=== PATIENT | male | born 1960 | race Caucasian/White ===

== ENCOUNTER 2018-08-22 17:58 | Emergency (ER) | payer BC, SELFPAY ==
[2018-08-22 18:04] VITALS: BP 130/86; PULSE 71; RESP 16; TEMP 36.4; O2SAT 99
[2018-08-22] MEDS: Gelatin SPONGE 12-7 MM PKT 1 EACH TP (18:52)
--- NOTE | 2018-08-22 18:52 | ED.GENADUL_ITS ---
Discharge Plan Disposition Patient Disposition: HOME Condition: Stable Discharge Details Chief Complaint: Laceration Clinical Impression: Avulsion of skin of index finger Primary Care Provider: Matt Lucas ED Provider: Johana Zaidi Home Meds and New Rx's Prescriptions: Continued ProAir HFA 8.5 GM HFA aerosol inhaler 8.5 gm Inhalation Q4H PRNQty: 1 RF: 0 cholecalciferol (vitamin D3) 1,000 UNITS tablet 3,000 units PO DAILY RF: 0 Discharge Instructions Instructions: Finger Laceration (ED) Additional Instructions: Keep wound clean, dry and intact. Let the Gelfoam fall off naturally, do not peel it off. It will fall off as the skin below the Gelfoam begins to heal. If you feel any signs of increased pain or swelling, remove the Gelfoam and apply topical antibiotic ointment. After the Gelfoam falls off, keep wound clean and dry. If you develop any signs of redness pain or swelling, apply Neosporin topical antibiotic ointment. Follow-up with your primary care doctor in 1 week for reevaluation. Call your primary care doctor's office on Friday to confirm your tetanus status and if you are not up to date, obtain a tetanus within 48 hours from time of injury at your doctor's office or emergency department. Return immediately to the emergency department any worsening or new concerning symptoms of fever or significant worsening redness pain or swelling. Discharge Data Discharge Physician: Johana Zaidi Medical Decision Making 58-year-old male who presents with left distal second fingertip skin avulsion after sliced with knife while cutting vegetables prior to arrival. Unsure of tetanus status. There is a 4 x 4 millimeter distal fingertip skin avulsion. Bleeding has since stopped. Edges appear clean. There is no bony injury. No evidence of infection. Patient offered tetanus here but he declined stating he would rather follow-up with his primary care doctor on Friday to determine his tetanus status. The fingertip was irrigated and Gelfoam applied with dressing. Patient was instructed to let the Gelfoam fall off naturally. He is instructed to keep the area clean dry and intact. If he notices any signs of redness, pain or swelling, to apply topical antibiotic ointment. He is instructed to follow with his primary care doctor for reevaluation and return here at any time with any significant worsening of symptoms. HPI General Mode of arrival: ambulatory . Date/Time Provider Initiated Documentation: 08/22/18 17:59 . Limitations to Documentation: no limitations . Information obtained by: patient . HPI Narrative: Patient is a 58-year-old male presents with left index finger laceration after sliced the tip of his finger off while cutting vegetables at home with a clean knife. He states he thinks his tetanus is up-to-date but he is unsure. He states he came here due to recommendations on care for his wound and because it cannot stop bleeding. States that it is since stopped bleeding. He denies any bony injury. Related Data Home Medications Medication Instructions Recorded Confirmed cholecalciferol (vitamin D3) 3,000 units PO DAILY 09/30/17 08/22/18 ProAir HFA 8.5 gm INHALATION Q4H PRN #1 10/07/17 08/22/18 [email or web address] Allergies Allergy/AdvReac Type Severity Reaction Status Date / Time No Known Allergies Allergy Unverified 08/22/18 18:07 General Stated Complaint: Laceration ELIZABETH: 4 Review of Systems Review of Systems All systems reviewed & are unremarkable except as noted in HPI and below Constitutional Reports as per HPI, Denies chills and Denies fever(s) Eyes Denies blurry vision ENT Denies dizziness, Denies sore throat and Denies throat swelling Cardiovascular Denies chest pain and Denies dyspnea Respiratory Denies cough and Denies dyspnea Gastrointestinal Denies abdominal pain, Denies diarrhea and Denies vomiting Genitourinary Denies hematuria and Denies dysuria Musculoskeletal Denies back pain and Denies numbness Integumentary/Breasts Denies lesions and Denies rash Neurologic Denies dizziness, Denies focal weakness and Denies numbness Allergic/Immunologic Denies throat swelling FORMERLY [facility], 1928–1983 Medical History No significant past medical history (Acute) Surgical History Perianal cyst (Acute) Family History Mother Stroke Father No problems noted. Sister No problems noted. Brother No problems noted. Brother No problems noted. Brother No problems noted. Social History Smoking and Tabacco status: Current every day alcohol intake: never substance use type: does not use Exam Const General: cooperative, healthy appearing and no acute distress HENMT Head: normal to inspection Mouth: oral mucosae normal Eyes General: appearance normal, both eyes and all related structures Neck Neck: normal visual inspection Resp Effort & Inspection: normal respiratory effort and able to speak in complete sentences Cardio Rate: regular rate Skin General skin exam: no rashes or lesions noted Neuro General: alert, awake and oriented x3 Motor: muscle tone normal throughout Extrem Hand/finger images: 1. 4x4mm superficial skin avulsion on lateral tip of L 2nd finger. No active bleeding. No surrounding edema, erythema or ecchymosis. No bony injury. No deformity noted. Psych Appearance: grossly normal Affect: normal affect Course Vital Signs Temperature 97.5 F L 08/22/18 18:04 Pulse 71 08/22/18 18:04 Respiratory Rate 16 08/22/18 18:04 Blood Pressure 130/86 08/22/18 18:04 Pulse Oximetry 99 08/22/18 18:04 Temperature 97.5 F L 08/22/18 18:04 Temperature Source Skin 08/22/18 18:04 Pulse 71 08/22/18 18:04 Respiratory Rate 16 08/22/18 18:04 Respiratory Effort 08/22/18 18:04 Blood Pressure 130/86 08/22/18 18:04 Blood Pressure Position Sitting 08/22/18 18:04 Pulse Oximetry 99 08/22/18 18:04 Oxygen Delivery Method Room Air 08/22/18 18:04 Oxygen Flow Rate 0 08/22/18 18:04 Pain Level 3 08/22/18 18:04
== END 2018-08-22 19:19 | disposition home or self-care (01) ==
PROVIDERS: Emergency Provider Physician Assistant; PCP Family Medicine
DX: S61.211A Laceration without foreign body of left index finger without damage to nail, initial encounter (principal); W26.0XXA Contact with knife, initial encounter
CPT/HCPCS: 99282

== ENCOUNTER 2018-09-18 00:58 | Outpatient (CLI) | payer BC, SELFPAY ==
--- NOTE | 2018-09-18 14:55 | DI.CTLCSR_ITS ---
SYMPTOMS/DIAGNOSIS: TOBACCO ABUSE, Z72.0, LUNG CANCER SCREENING CT SCAN OF THE CHEST: Noncontrast CT scan of the was performed according to the lung cancer screening protocol. The thoracic aorta shows atherosclerosis. No aneurysmal dilatation. The heart size is within normal limits. No significant pericardial effusion is seen. Coronary artery calcifications are present. No significant thoracic adenopathy, pleural effusion or pneumothorax is identified. There is a calcified granuloma seen in the left lower lobe laterally. No noncalcified pulmonary nodules are seen. No infiltrates are present. The tracheobronchial tree is unremarkable. Degenerative changes are seen in the spine. IMPRESSION: No pulmonary nodules. Lung-RAD Category: 1- Negative Lung- RAD Management of Findings: Continue annual LDCT screening in 12 months
== END 2018-09-18 01:18 ==
PROVIDERS: PCP Family Medicine; Visit Provider Family Medicine
DX: Z12.2 Encounter for screening for malignant neoplasm of respiratory organs (principal); J84.10 Pulmonary fibrosis, unspecified; Z72.0 Tobacco use
CPT/HCPCS: G0297

== ENCOUNTER 2019-01-14 06:38 | Emergency (ER) | payer BC, SELFPAY ==
[2019-01-14 06:44] VITALS: BP 124/75; PULSE 80; RESP 15; TEMP 36.6; O2SAT 100
[2019-01-14] MEDS: Tetracaine 0.5% 4 ML BTL (06:55)
--- NOTE | 2019-01-14 07:12 | W.ED.GENAD ---
Discharge Plan Disposition Patient Disposition: HOME Condition: Stable Discharge Details Chief Complaint: EyeProblem Clinical Impression: Corneal abrasion Primary Care Provider: Kuldeep French ED Provider: Johana Zaidi Home Meds and New Rx's Prescriptions: Continued benzonatate 100 mg capsule 100 - 200 mg PO TID PRN (Reason: cough) Qty: 60 RF: 0 Symbicort 80-4.5 mcg/actuation HFA aerosol inhaler 2 puff IH BID RF: 0 omega-3 fatty acids 500 mg capsule 1,000 mg PO DAILY RF: 0 PreserVision AREDS [id number] capsule 2 cap PO BID RF: 0 levalbuterol tartrate [Xopenex HFA] 45 mcg/actuation HFA aerosol inhaler 2 inh IH Q6H Qty: 15 RF: 2 cholecalciferol (vitamin D3) 1,000 UNITS tablet 3,000 units PO DAILY RF: 0 Discharge Instructions Instructions: Corneal Abrasion (ED) Additional Instructions: Apply the erythromycin ointment to your right eye 4 times daily for the next 5 days. Alternate Tylenol and Motrin as needed and directed for pain. Follow-up with [facility] eye care within the next week for reevaluation. Return to the emergency department if you develop any worsening or new concerning symptoms. Discharge Data Discharge Date/Time-TO BE ENTERED AT DEPARTURE: 01/14/19 07:35 Discharge Physician: Johana Zaidi Medical Decision Making 58-year-old male presents with right eye pain and irritation after scratched by his dog's nail/paw this morning. Patient is noted to have a corneal abrasion between 6 and 7:00. No foreign bodies noted. PERRLA. EOMI. No signs of cellulitis. Tetanus 2002. Boostrix ordered. Erythromycin ointment applied and to given for home. Patient instructed to follow-up with [facility] eye care for reevaluation and to return here anytime if worse HPI General Mode of arrival: ambulatory. Date/Time Provider Initiated Documentation: 01/14/19 06:39. Limitations to Documentation: no limitations. Information obtained by: patient. HPI Narrative: Patient is a 58-year-old male presents the ED with complaint of right eye pain after scratched by his dog this morning. Patient states he woke up and went to reach for his dogs Jose Rafael and he scratched him on his eye with his nail. Patient is unsure of his tetanus status. He denies any blurry vision, discharge. He does not wear contacts. He denies any foreign body sensation or known foreign body in eye. Related Data Home Medications Medication Instructions Recorded Confirmed cholecalciferol (vitamin D3) 3,000 units PO DAILY 09/30/17 01/14/19 benzonatate 100 mg capsule 100 - 200 mg PO TID PRN #60 cap 08/28/18 01/14/19 levalbuterol tartrate 45 2 inh IH Q6H #15 gm 09/15/18 01/14/19 mcg/actuation aerosol inhaler omega-3 fatty acids 500 mg capsule 1,000 mg PO DAILY cap 09/15/18 01/14/19 vitamins A,C,Y-gbas-xkryvp 14,320 2 cap PO BID cap 09/15/18 01/14/19 unit-226 mg-200 unit capsule budesonide-formoterol HFA 80 2 puff IH BID gm 10/07/18 01/14/19 mcg-4.5 mcg/actuation aerosol inhaler Previous Rx's Medication Instructions Recorded benzonatate 100 mg capsule 100 - 200 mg PO TID PRN #60 cap 08/28/18 levalbuterol tartrate 45 2 inh IH Q6H #15 gm 09/15/18 mcg/actuation aerosol inhaler Allergies Allergy/AdvReac Type Severity Reaction Status Date / Time No Known Allergies Allergy Verified 10/07/18 10:53 General Stated Complaint: EyeProblem ELIZABETH: 4 Review of Systems Review of Systems All systems reviewed & are unremarkable except as noted in HPI and below Constitutional Reports as per HPI, Denies chills and Denies fever(s) Eyes Denies blurry vision and Reports eye pain ENT Denies dizziness, Denies sore throat and Denies throat swelling Cardiovascular Denies chest pain and Denies dyspnea Respiratory Denies cough and Denies dyspnea Gastrointestinal Denies abdominal pain, Denies diarrhea and Denies vomiting Genitourinary Denies hematuria and Denies dysuria Musculoskeletal Denies back pain and Denies numbness Integumentary/Breasts Denies lesions and Denies rash Neurologic Denies dizziness, Denies focal weakness and Denies numbness Allergic/Immunologic Denies throat swelling PFS Social History Smoking/Tobacco Use Status: Current every day Alcohol Intake: never Drug use: Never Substance use type: does not use Do you feel safe at home: Yes Do you feel safe in your relationship?: Yes Exam Const General: cooperative, healthy appearing and no acute distress HENMT Head: normal to inspection Mouth: oral mucosae normal Eyes General: appearance normal, both eyes and all related structures Periorbital: periorbital findings normal Eyelids: eyelids normal Conjunctivae: conjunctival abnormality right conjunctival injection diffuse (mild) Cornea: corneas abnormal on the right fluorescein used and abrasion at the following clock position (between 6 and 7) Pupils: PERRL EOM: EOM intact bilaterally Other: No foreign bodies noted with full inspection including eyelid eversion of R eye. Neck Neck: normal visual inspection Resp Effort & Inspection: normal respiratory effort and able to speak in complete sentences Cardio Rate: regular rate Skin General skin exam: no rashes or lesions noted Neuro General: alert, awake and oriented x3 Motor: muscle tone normal throughout Extrem General: normal to inspection and full ROM Psych Appearance: grossly normal Affect: normal affect Course Vital Signs Temperature 97.9 F 01/14/19 06:44 Pulse 80 01/14/19 06:44 Respiratory Rate 15 01/14/19 06:44 Blood Pressure 124/75 01/14/19 06:44 Pulse Oximetry 100 01/14/19 06:44 Temperature 97.9 F 01/14/19 06:44 Temperature Source Temporal Artery Scan 01/14/19 06:44 Pulse 80 01/14/19 06:44 Respiratory Rate 15 01/14/19 06:44 Respiratory Effort Non-Labored 01/14/19 06:47 Blood Pressure 124/75 01/14/19 06:44 Blood Pressure Position Sitting 01/14/19 06:44 Pulse Oximetry 100 01/14/19 06:44 Oxygen Delivery Method Room Air 01/14/19 06:44 Oxygen Flow Rate 0 01/14/19 06:44
[2019-01-14] MEDS: Erythromycin Ophth Oint 3.5 GM TUBE (07:41)
[2019-01-14] MEDS: Fluorescein STRIPS 100/BOX 1 MG (07:42)
== END 2019-01-14 07:35 | disposition home or self-care (01) ==
PROVIDERS: Emergency Provider Physician Assistant; PCP Family Medicine
DX: S05.01XA Injury of conjunctiva and corneal abrasion without foreign body, right eye, initial encounter (principal); W54.8XXA Other contact with dog, initial encounter
CPT/HCPCS: 90471; 99284; 99283

== ENCOUNTER 2019-04-30 10:17 | Outpatient (CLI) | payer BC, SELFPAY ==
--- NOTE | 2019-04-30 10:37 | DI.RAD_ITS ---
EXAM: XR THORACIC SPINE COMPLETE INDICATION: mid back pain for 2 yrs, M54.9-DORSALGIA. COMPARISON: CHEST 2 VIEWS PA,LAT from 09/30/2017 TECHNIQUE: 2D digital imaging was performed. FINDINGS: The vertebral bodies are well maintained in height. The disc spaces are well maintained. There are minimal endplate osteophytes. There is no significant scoliosis. The aorta is mildly tortuous. Th e visualized portions of the lungs appear clear. IMPRESSION: Minimal degenerative changes.
== END 2019-04-30 10:37 ==
PROVIDERS: PCP Family Medicine; Visit Provider Family Medicine
DX: M54.6 Pain in thoracic spine (principal); M47.814 Spondylosis without myelopathy or radiculopathy, thoracic region
CPT/HCPCS: 72072

== ENCOUNTER 2019-06-07 13:19 | Emergency (ER) | payer BC, SELFPAY ==
[2019-06-07 13:26] VITALS: BP 127/79; PULSE 66; RESP 14; TEMP 35.6; O2SAT 99
[2019-06-07 14:10] VITALS: BP 163/84; PULSE 62; RESP 14; TEMP 35.8; O2SAT 97
--- NOTE | 2019-06-07 15:08 | ED.GENADUL_ITS ---
Discharge Plan Disposition Patient Disposition: HOME Condition: Stable Discharge Details Chief Complaint: Orthopedic Clinical Impression: Back pain Primary Care Provider: Kuldeep French ED Provider: Sea Schwarz Home Meds and New Rx's Prescriptions: New methylprednisolone [Medrol (Jose Miguel)] 4 mg tablets,dose pack See Rx Instructions .ROUTE .COMPLEX Qty: 21 RF: 0 No Action omega-3 fatty acids 500 mg capsule 1,000 mg PO DAILY RF: 0 PreserVision AREDS [id number] capsule 2 cap PO BID RF: 0 Discharge Instructions Instructions: Back Pain (ED) Additional Instructions: 1. Drink plenty of fluids. 2. Continue all medications as prescribed. 3. Acetaminophen 1000mg every 4 hours (up to 5 time a day) and/or ibuprofen 600mg every 6 hours as needed for fever or pain. 4. Medrol Dosepak as prescribed starting tomorrow. Do not take ibuprofen while taking this medication. 5. Follow-up with your doctor for reevaluation and a possible outpatient lumbar sacral MRI referral. Return to the Emergency Department (ED) if your condition worsens, does not imp rove as expected, or for ANY other concerns. Specifically, return if you have new or uncontrolled pain, worsening fever, difficulty breathing, vomiting, or are unable to drink fluids. Medical Decision Making 51-year-old gentleman presents with persistent lower back/left lower SI joint pain and tenderness which is radiating towards his posterior leg and left ankle. Exam significant for left SI joint tenderness and gluteal tenderness. No clinical evidence of neurovascular compromise. Discussed likely inflammatory etiology. Treated in the ED with oral Medrol and discharged Medrol Dosepak. Discussed need for outpatient follow-up and possible outpatient MRI for re- stratification for likely procedural intervention. Given usual and customary return instructions prior to discharge. Medical Records Medical records reviewed: Yes I reviewed the patient's medical records. HPI 59-year-old gent with a past medical history which includes back pain. Reports having had episodes of back pain localized to his lumbar and right gluteal region which have been self-limited and have resolved with OTC analgesia and chiropractic adjustment. Presents with more severe pain in the same region radiating towards his posterior thigh and his left lateral distal leg. Onset of symptoms not associate with a specific trauma or inciting event. He was evaluated by his PC P without intervention and also has had chiropractic manipulation without significant improvement in symptoms. He denies significant change in bladder habits and notes being more constipated recently. He also denies significant fever/chills focal extremity weakness, or atypical abdominal pain. General Date/Time Provider Initiated Documentation: 06/07/19 13:57 . Related Data Home Medications Medication Instructions Recorded Confirmed omega-3 fatty acids 500 mg capsule 1,000 mg PO DAILY cap 09/15/18 06/07/19 vitamins A,C,H-kewq-rbewia 14,320 2 cap PO BID cap 09/15/18 06/07/19 unit-226 mg-200 unit capsule methylprednisolone [Medrol (Jose Miguel)] See Rx Instructions .ROUTE 06/07/19 .COMPLEX #21 dose pk Previous Rx's Medication Instructions Recorded methylprednisolone [Medrol (Jose Miguel)] See Rx Instructions .ROUTE 06/07/19 .COMPLEX #21 dose pk Allergies Allergy/AdvReac Type Severity Reaction Status Date / Time No Known Allergies Allergy Verified 06/07/19 13:32 General Stated Complaint: Orthopedic ELIZABETH: 3 Review of Systems All systems reviewed & are unremarkable except as noted in HPI and below PFSH Medical History Back pain due to injury (Acute) No significant past medical history (Acute) Surgical History Perianal cyst (Acute) Family History Mother Stroke Father No problems noted. Sister No problems noted. Brother No problems noted. Brother No problems noted. Brother No problems noted. Social History Smoking/Tobacco Use Status: Current every day Alcohol Intake: never Drug use: Never Substance use type: does not use Do you feel safe at home: Yes Do you feel safe in your relationship?: Yes Exam Narrative Exam Narrative: Nursing note and vital signs have been reviewed and noted. GENERAL: alert, active, no acute distress, well -hydrated, well-nourished HEENT: atraumatic/normocephalic, PERRLA, EOMI, conjunctiva clear, external ears/canals normal, nasal mucosa normal NECK: supple, full range of motion CARDIOVASCULAR: nl pulses, no edema PULMONARY: nl effort, no audible wheezing or stridor ABDOMEN: non-distended EXTREMITY: normal muscle tone, all joints with FROM, no deformity NUERO: normal mentation, moving all extremities, normal stance and gait, PSYCH: alert and oriented SKIN: no new rashes or lesions BACK: Mild lower lumbar midline tenderness. More significant tenderness at the right SIJ. Palpation of this region reproduced subjective pain. Mild posterior gluteal tenderness. Normal peripheral neurovascular exam. Course Vital Signs Vital signs: Vital Signs Temperature 96.1 F L 06/07/19 13:26 Pulse 66 06/07/19 13:26 Respiratory Rate 14 06/07/19 13:26 Blood Pressure 127/79 06/07/19 13:26 Pulse Oximetry 99 06/07/19 13:26 Temperature 96.4 F L 06/07/19 14:10 Temperature Source Tympanic 06/07/19 13:26 Pulse 62 06/07/19 14:10 Respiratory Rate 14 06/07/19 14:10 Respiratory Effort 06/07/19 13:34 Blood Pressure 163/84 H 06/07/19 14:10 Pulse Oximetry 97 06/07/19 14:10 Oxygen Delivery Method Room Air 06/07/19 13:26 Oxygen Flow Rate 0 06/07/19 13:26 Pain Level 9 06/07/19 14:10 Comment 06/07/19 13:26
== END 2019-06-07 14:21 | disposition home or self-care (01) ==
LOC: ER 14:10
PROVIDERS: Emergency Provider Emergency Medicine; PCP Family Medicine
DX: M54.5 Low back pain (principal)
CPT/HCPCS: 99283; J3490

== ENCOUNTER 2019-06-08 10:59 | Outpatient (CLI) | payer BC, SELFPAY ==
--- NOTE | 2019-06-08 11:15 | DI.RAD_ITS ---
EXAM: XR LUMBAR SPINE COMPLETE INDICATION: low back pain, dorsalgia, M54.9. COMPARISON: No exams were available for comparison TECHNIQUE: 2D digital imaging was performed. FINDINGS: The vertebral bodies are well maintained in height. There is bilateral L5 spondylolysis and slight L 5-S1 spondylolisthesis. There is no scoliosis. The disc spaces are well maintained. The SI joints are unremarkable. The aorta is calcified and normal in diameter. IMPRESSION: L5 spondylolysis.
== END 2019-06-08 11:19 ==
PROVIDERS: PCP Family Medicine; Visit Provider Family Medicine
DX: M54.5 Low back pain (principal); M43.06 Spondylolysis, lumbar region; M43.17 Spondylolisthesis, lumbosacral region
CPT/HCPCS: 72110

== ENCOUNTER 2019-06-24 00:20 | Outpatient (CLI) | payer BC, SELFPAY ==
--- NOTE | 2019-06-24 11:25 | DI.MRI_ITS ---
EXAM: MR LUMBAR SPINE WO CLINICAL HISTORY: low back pain M54.5. TECHNIQUE: Multiplanar multisequence MRI was performed. COMPARISON: XR LUMBAR SPINE COMPLETE from 06/08/2019 FINDINGS: The conus medullaris has a normal appearance and location. At L4-L5, there is disc desiccation. There is a large left paracentral disc herniation with extrusio n posterior to the L4 vertebral body. It causes left lateral recess stenosis and compresses the left L4 nerve root. There does appear to be extension into the left neural foramen. There is narrowing of the central spinal canal at this level. There are degenerative changes of the facets. No right n eural foraminal stenosis is seen. There is moderate left neural foraminal stenosis. At L5-S1, there is a mild diffuse disc bulge and facet arthropathy. No significant central spinal ca nal or neural foraminal stenosis is seen. The remaining disc levels are unremarkable. Marrow signal is within normal limits. IMPRESSION: At L4-L5, there is a large left paracentral extruded disc compressing the left L4 nerve root and cont ributing to both central spinal canal and left neural foraminal stenosis.
== END 2019-06-24 00:40 ==
PROVIDERS: PCP Family Medicine; Visit Provider Family Medicine
DX: M54.5 Low back pain (principal); M51.17 Intervertebral disc disorders with radiculopathy, lumbosacral region
CPT/HCPCS: 72148

== ENCOUNTER 2020-09-21 00:50 | Outpatient (REF) | payer BC, SELFPAY ==
[2020-09-23 13:20] LABS: COVID-19 RT-PCR UVMMC Result Negative (Negative)
== END 2020-09-21 00:51 | disposition home or self-care (01) ==
LOC: LBN 00:50
PROVIDERS: PCP Family Medicine; Visit Provider Nurse Practitioner Family
DX: Z20.822 Contact with and (suspected) exposure to COVID-19 (principal)
CPT/HCPCS: U0003

== ENCOUNTER 2023-08-14 04:42 | Outpatient (CLI) | payer BC, SELFPAY ==
[2023-08-14 12:26] LABS: Abs Immature Grans 0.06 10^3/uL (0.0-0.06); Absolute Basophil Count 0.07 10^3/uL (0.0-0.2); Absolute Eosinophil Count 0.23 10^3/uL (0.0-0.7); Absolute Lymphocyte Count 3.25 10^3/uL (1.2-3.4); Absolute Monocyte Count 1.06 10^3/uL (0.1-0.8); Absolute Neutrophil Count 6.39 10^3/uL (1.2-6.7); Basophils % 0.6; Eosinophils % 2.1; HCT 46.2 % (40.0-50.0); HGB 14.8 g/dL (13.5-17.5); Immature Grans % 0.5; Lymphocytes % 29.4; MCH 30.2 pg (27.0-33.0); MCV 94 fL (80-95); MPV 10.7 fL (8.0-11.0); Monocytes % 9.6; Neutrophils % 57.8; Platelet Count 321 10^3/uL (130-400); RDW 13.3 % (11.8-14.1); RDW-SD 46.5 fL; WBC 11.06 10^3/uL (4.4-10.8)
[2023-08-14 12:55] LABS: Calculated LDL 210 mg/dL (<100); Cholesterol 294 mg/dL (<200); Glucose 97 mg/dL (74-106); HDL Cholesterol 50 mg/dL (40-60); Triglyceride 170 mg/dL (<150)
[2023-08-14 14:29] LABS: Lab Add On Test DONE
[2023-08-14 14:50] LABS: ALT 39 U/L (16-63); AST 31 U/L (15-37)
== END 2023-08-14 04:43 | disposition home or self-care (01) ==
LOC: LOS 04:42
PROVIDERS: PCP Family Medicine; Visit Provider Family Medicine
DX: R73.9 Hyperglycemia, unspecified; E78.00 Pure hypercholesterolemia, unspecified
CPT/HCPCS: 36415; 80061; 82947; 84450; 84460; 85025